=== PATIENT | female | born 1950 | race Caucasian/White ===

== ENCOUNTER → 2016-05-14 | Outpatient (CLI) | payer OTHER ==
[~2016-05-14] MED LIST: ALBU1AER9; ATOR-26 PO; CHOL1000 PO; CLOP1TAB5 PO; CYAN500T13 PO; DIPH-416 PO; DRON5CAP2 PO; MAGIC1 PO; ONDA4TAB46 PO; PRLSR20 PO; PYRI100T4 PO
--- NOTE | 2016-05-14 14:47 | DIAGNOSTIC IMAGING REPORT ---
CT OF THE CHEST WITH IV CONTRAST CLINICAL HISTORY: METASTATIC COLORECTAL CA COMPARISON STUDY: 02/20/2016 TECHNIQUE: Following the IV administration of 120 mL of Optiray-320, CT of the thorax was performed from the thoracic inlet to the lung bases. Images are reviewed in the axial, sagittal, and coronal planes. IV contrast was administered without complication. CT DOSE: 869.91 mGy.cm FINDINGS: Thyroid: Imaged portions of the thyroid gland are normal in appearance. Thoracic aorta: The thoracic aorta is normal in course and caliber, noting standard 3-vessel arch anatomy. No aneurysm or dissection is seen. Pulmonary vasculature: The pulmonary trunk is normal in caliber. There are no central filling defects identified to suggest pulmonary embolus. Note that this examination was not protocoled for the evaluation of pulmonary emboli. HEART: There are mild coronary artery calcifications Lungs and pleural spaces: There is no focal pulmonary consolidation. There is a stable 7 mm right lower lobe pulmonary nodule. There are a few additional punctate bony nodules which remain similar. There are no pleural effusions. There is a calcified right lower lobe granuloma. Mediastinum: There is no mediastinal lymphadenopathy. Yolie: Clear. Axilla: Clear. Upper abdomen: There is nodular infiltration of the left lateral peritoneal fat/omentum, suspicious for carcinomatosis. Subtle left lobe hepatic hypodensities remain similar. Skeletal structures: There are no lytic or blastic osseous lesions. IMPRESSION: 1. Progressive omental nodularity suspicious for progressive abdominal carcinomatosis 2. No evidence of pathologic intrathoracic adenopathy 3. Stable 7 mm right lower lobe pulmonary nodule Electronically signed by: Amador Deluna M.D. 05/14/2016 2:46 PM Dictated Date/Time: 05/14/2016 2:38 PM
--- NOTE | 2016-05-14 15:00 | DIAGNOSTIC IMAGING REPORT ---
CT SCAN OF THE ABDOMEN AND PELVIS WITH IV CONTRAST CLINICAL HISTORY: Metastatic colon cancer. COMPARISON STUDY: Abdominal CT dated 02/20/2016 and 02/06/2015. TECHNIQUE: Following the IV administration of 120 cc of Optiray 320, CT scan of the abdomen and pelvis is performed from the lung bases to the proximal femora. Images are reviewed in the axial, sagittal, and coronal planes. IV contrast was administered without complication. Automated dose control exposure was utilized. CT DOSE: 475.99 mGy.cm FINDINGS: Lung bases: The tip of a central venous infusion port terminates at the cavoatrial junction. The heart is normal in size and without pericardial effusion. Emphysema is observed. No airspace consolidation or pleural effusion is identified. A calcified granuloma is seen in the right lower lobe. A tiny hiatal hernia is noted. Liver: The contrast-enhanced liver is normal in size, contour, and attenuation. There is no intrahepatic biliary ductal dilatation. The hepatic veins and portal veins are patent. A serpiginous low density lesion in the left lobe of liver on image #64 is unchanged from previous. At least 2 additional subcentimeter low-density hepatic lesions are identified on images #80 and #89. These lesions have not significantly changed in appearance from 02/20/2016. Gallbladder: Surgically absent noting clips in the gallbladder fossa. Spleen: Normal in size and attenuation. Pancreas: Atrophic and grossly unremarkable. Adrenal glands: Unremarkable. Kidneys: The contrast enhanced kidneys demonstrate cortical atrophy and are without hydronephrosis. The kidneys enhance symmetrically. Abdominal vasculature: The abdominal aorta is normal in course and caliber noting moderate atherosclerotic calcification. Bowel: There are postoperative changes from distal colonic resection with left lower quadrant colostomy. There is a parastomal hernia containing nonobstructed loops of small bowel. A mucous fistula is suspected in the pelvic midline. A second parastomal hernia contains a nonobstructed loop of small bowel. No bowel obstruction is seen. The appendix is normal as visualized. Peritoneum: No intraperitoneal free air is seen. Trace free fluid is identified in the pelvis. There is increasing peritoneal thickening and nodularity identified in the left upper quadrant and in the right lower quadrant as compared to 02/20/2016. The appearance is consistent with progressive carcinomatosis. Lymphadenopathy: None. Pelvic viscera: The bladder is normal as visualized. The uterus is surgically absent. No adnexal lesion is seen. Skeletal structures: The skeletal structures are osteopenic. There is moderate lumbosacral spondylosis. No lytic or blastic lesions are seen. IMPRESSION: 1. Overall progression of peritoneal carcinomatosis as compared to 02/20/2016. A small volume of pelvic ascites is noted. 2. Presumed metastatic low-attenuation hepatic lesions have not significant changed in appearance from prior studies. 3. There are postoperative changes from distal colectomy with left lower quadrant colostomy and suspected mucous fistula in the ventral pelvis. No bowel obstruction is seen. 4. There are 2 parastomal hernias which contain nonobstructed loops of small bowel. 5. Additional changes as above. Electronically signed by: Ridge Mccarthy M.D. 05/14/2016 2:58 PM Dictated Date/Time: 05/14/2016 2:48 PM
== END | disposition home or self-care (01) ==
LOC: C.CTS 11:26
PROVIDERS: ATTEND Internal Medicine Hematology & Oncology
DX: C18.7 Malignant neoplasm of sigmoid colon (principal); Z93.3 Colostomy status; K76.9 Liver disease, unspecified; R91.1 Solitary pulmonary nodule

== ENCOUNTER → 2016-09-06 | Outpatient (CLI) | payer OTHER ==
[~2016-09-06] MED LIST changes: +OPTIRAY 320 IV PRN
--- NOTE | 2016-09-06 12:13 | DIAGNOSTIC IMAGING REPORT ---
CT OF THE CHEST WITH IV CONTRAST CLINICAL HISTORY: Metastatic colorectal carcinoma COMPARISON STUDY: The 2417 TECHNIQUE: Following the IV administration of 94 mL of Optiray-320, CT of the thorax was performed from the thoracic inlet to the lung bases. Images are reviewed in the axial, sagittal, and coronal planes. IV contrast was administered without complication. CT DOSE: 740.09 mGycm FINDINGS: Thyroid: Imaged portions of the thyroid gland are normal in appearance. Thoracic aorta: The thoracic aorta is normal in course and caliber, noting standard 3-vessel arch anatomy. No aneurysm or dissection is seen. Pulmonary vasculature: The pulmonary trunk is normal in caliber. There are no central filling defects identified to suggest pulmonary embolus. Note that this examination was not protocoled for the evaluation of pulmonary emboli. HEART: The heart is normal in size and configuration, without pericardial effusion. Lungs and pleural spaces: There are no pleural effusions. There is no focal pulmonary consolidation. There is a stable 7 mm mixed groundglass and solid right lower lobe pulmonary nodule.. There is a stable right lower lobe calcification. Mediastinum: There is no mediastinal lymphadenopathy. Yolie: Clear. Axilla: There is no evidence of pathologic axillary lymphadenopathy Upper abdomen: There is persistent omental nodularity. Skeletal structures: There are no lytic or blastic osseous lesions. IMPRESSION: 1. Persistent omental nodularity suspicious for carcinomatosis 2. Stable mixed solid and groundglass 7 mm right lower lobe pulmonary nodule 3. No evidence of intrathoracic pathologic adenopathy Electronically signed by: Amador Deluna M.D. 09/06/2016 12:12 PM Dictated Date/Time: 09/06/2016 12:06 PM
--- NOTE | 2016-09-06 12:30 | DIAGNOSTIC IMAGING REPORT ---
ABD/PELVIS IV AND ORAL CONT HISTORY:65 yearsFemaleCOLORECTAL CA this is a 3 month follow-up exam. Prior distal colectomy with left lower quadrant colostomy COMPARISON: CT abdomen and pelvis 05/14/2016, chest CT 09/06/2016. TECHNIQUE: Multiple axial CT images of the abdomen and pelvis were obtained following the intravenous administration of 94 mL Optiray 320. Oral contrast was also used. FINDINGS: The imaged lung bases are clear. There is no evidence of pneumoperitoneum. Inferior cardiac chambers are within normal limits. Multiple subcentimeter hepatic lesions are again seen, largest of which is within the lateral left hepatic lobe, 1.5 cm on image 9 of the axial series. Prior cholecystectomy. The spleen, adrenal glands appear normal. There is moderate to severe pancreatic atrophy. Kidneys and ureters are within normal limits. Urinary bladder is distended. Prior hysterectomy. There is mild atherosclerotic plaquing of the abdominal aorta and iliac vasculature. There is no bulky retroperitoneal adenopathy. Portal vein is patent. There is no bowel obstruction. Postsurgical changes are redemonstrated with distal colectomy and distal colostomy of the left lower quadrant. Parastomal hernias containing nonobstructed loop of small bowel are again seen. Extensive omental and peritoneal nodularity of the central and left upper abdomen is again seen without significant change from 05/14/2016. Trace abdominal and pelvic ascites has slightly progressed. No new adenopathy is identified. No suspicious sclerotic or lytic bony lesions are identified. There is advanced intervertebral disc space narrowing at L1-L2 with 4 mm retrolisthesis L1 on L2. IMPRESSION: 1. Stable exam with redemonstration of abdominal and pelvic omental/peritoneal carcinomatosis with small volume intra-abdominal and intrapelvic ascites. 2. No new adenopathy identified. 3. Persistent multiple subcentimeter low attenuating lesions throughout the hepatic parenchyma suspicious for metastasis. 4. Additional stable incidental findings as above include nonobstructing parastomal hernias. The above report was generated using voice recognition software. It may contain grammatical, syntax or spelling errors. Electronically signed by: Anurag Garber M.D. 09/06/2016 12:28 PM Dictated Date/Time: 09/06/2016 12:19 PM
== END | disposition home or self-care (01) ==
LOC: C.CTS 11:29
PROVIDERS: ATTEND Internal Medicine Hematology & Oncology
DX: C18.7 Malignant neoplasm of sigmoid colon (principal)

== ENCOUNTER → 2016-11-22 | Outpatient (CLI) | payer OTHER ==
--- NOTE | 2016-11-22 19:12 | DIAGNOSTIC IMAGING REPORT ---
CT OF THE CHEST WITH IV CONTRAST CLINICAL HISTORY: Colon cancer. COMPARISON STUDY: Chest CT September 06, 2016. TECHNIQUE: Following IV administration of 120 mL of Optiray-320, helical axial images of the chest were obtained. Sagittal and coronal reconstructions were viewed as well as maximal intensity projections on an independent 3-D workstation. A dose lowering technique was utilized adhering to the principles of ALARA. CT DOSE: 1087.48 mGycm FINDINGS: No enlarged axillary, mediastinal or hilar lymph nodes are present. The size of the heart is normal. There is no pericardial effusion. Central airways are patent. There is no consolidation to suggest pneumonia. An 8 mm right lower lobe nodule with tree-in-bud configuration shown on image 160 of 276 is unchanged from prior exams. A calcified granuloma within the right lower lobe is noted. Linear and ground glass opacities within the lungs favor atelectasis. There is no pneumothorax or pleural effusion. No suspicious osseous lesions are identified. The abdomen and pelvis will be reported separately. Omental nodularity consistent with carcinomatosis is again noted. This is better depicted on the abdominal CT. IMPRESSION: 1. No evidence of metastatic disease within the chest. 2. No change in the 8 mm right lower lobe nodule since CT of April 09, 2015. This remains indeterminate and can be followed on subsequent studies. 3. Findings consistent with peritoneal carcinomatosis which is better depicted on the abdominal CT. Electronically signed by: Raul Chin M.D. 11/22/2016 7:11 PM Dictated Date/Time: 11/22/2016 4:19 PM
--- NOTE | 2016-11-22 19:15 | DIAGNOSTIC IMAGING REPORT ---
ABD/PELVIS IV AND ORAL CONT HISTORY: 65 years-old Female COLON CA follow-up study in a patient with history of colon cancer. History of omental/peritoneal carcinomatosis. COMPARISON: CT abdomen and pelvis 09/06/2016, CT chest of same day TECHNIQUE: Multiple axial CT images of the abdomen and pelvis were obtained following the intravenous administration of 120 mL Optiray 320. Oral contrast also administered. A dose lowering technique was used consistent with the principals of ZAIDA. FINDINGS: There is a partially imaged 6 mm groundglass nodule right lower lobe seen on image 1 of series 6, better evaluated on CT chest of same day. Lung bases are otherwise clear. No pneumoperitoneum identified. Imaged inferior cardiac chambers are unremarkable. There is redemonstration of multiple subcentimeter low attenuating lesions throughout the liver, suspicious for metastasis. These are unchanged. Prior cholecystectomy. The spleen, pancreas and adrenal glands are unremarkable. 3 mm low attenuating lesion of the superior pole right kidney is too small to characterize however suggesting a cyst. Kidneys are otherwise unremarkable without renal calculi or hydronephrosis. Ureters and urinary bladder are unremarkable. Prior hysterectomy. There is moderate mixed plaquing of the abdominal aorta. No bulky retroperitoneal adenopathy identified. There is mild nonspecific wall thickening of the distal esophagus. Bowel containing parastomal hernias are noted. Postoperative changes are again seen compatible with distal colectomy and left lower quadrant colostomy. There is moderate wall thickening with mucosal hyperemia involving the cecum, ascending colon and hepatic flexure suspicious for colitis with air-fluid levels seen within this distribution. There are a few loops of mildly dilated small bowel within the lower pelvis measuring up to 3.0 cm with air-contrast levels. No significant proximal small bowel dilation identified however there is decreased progression of contrast into into distal minimally collapsed ileum. Diffuse peritoneal and omental nodularity is again seen throughout the abdomen and pelvis with slightly progressed disease, notably involving the bilateral paracolic gutters as seen on image 214 of series 6. Mild amount of dependent pelvic ascites redemonstrated. Soft tissues are unremarkable. No new suspicious lytic or blastic bony lesions. Multilevel degenerative changes of the spine are noted. IMPRESSION: 1. Redemonstration of abdominal and pelvic omental and peritoneal carcinomatosis with mildly progressive disease along the inferior aspect of the bilateral pericolic gutters as above. Small volume pelvic ascites is unchanged. 2. Multiple loops of small bowel within the lower mid abdomen and pelvis are mildly dilated with air contrast levels. There is diminished progression of contrast into distal mildly collapsed terminal ileum. These findings may reflect mild ileus or alternatively a low-grade small bowel obstruction. 3. Wall thickening and mucosal hyperemia involving the cecum, ascending colon and hepatic flexure are suspicious for colitis. 4. Unchanged subcentimeter low attenuating lesions throughout the liver are again suspicious for metastasis. 5. Unchanged appearance of parastomal nonobstructing hernias The above report was generated using voice recognition software. It may contain grammatical, syntax or spelling errors. Electronically signed by: Anurag Garber M.D. 11/22/2016 7:14 PM Dictated Date/Time: 11/22/2016 4:10 PM
== END | disposition home or self-care (01) ==
LOC: C.CTS 15:19
PROVIDERS: ATTEND Internal Medicine Hematology & Oncology
DX: C18.7 Malignant neoplasm of sigmoid colon (principal); R93.3 Abnormal findings on diagnostic imaging of other parts of digestive tract; K76.9 Liver disease, unspecified; K43.5 Parastomal hernia without obstruction or gangrene

== ENCOUNTER → 2017-02-16 | Outpatient (CLI) | payer OTHER ==
[~2017-02-16] MED LIST changes: +DRON5CAP15 PO; -DRON5CAP2 PO
--- NOTE | 2017-02-16 16:33 | DIAGNOSTIC IMAGING REPORT ---
CT SCAN OF THE CHEST, ABDOMEN, AND PELVIS WITH IV CONTRAST CLINICAL HISTORY: Colon cancer follow-up. COMPARISON STUDY: CT scan of the chest dated 11/22/2016 and 10/13/2014. Abdominal CT dated 11/22/2016 and 04/09/2015. TECHNIQUE: Following the IV administration of 93 of Optiray 320, CT scan of the chest, abdomen, and pelvis was performed from the thoracic inlet to the proximal femora. Images are reviewed in the axial, sagittal, and coronal planes. IV contrast was administered without complication. Automated dose control exposure was utilized. A dose lowering technique was utilized adhering to the principles of ALARA. CT DOSE: 653.70 mGy.cm FINDINGS: CHEST: Thyroid: Imaged portions of the thyroid gland are normal in size and attenuation. Thoracic aorta: The thoracic aorta is normal in caliber and demonstrates standard 3-vessel arch anatomy. No dissection is seen. A right internal jugular central venous infusion port is unchanged in position. Pulmonary vasculature: The pulmonary trunk is normal in caliber. There are no filling defects identified in the central pulmonary vessels to indicate pulmonary embolus. Note that this examination was not protocoled for evaluation of the pulmonary arteries. Heart: The heart is normal in size and configuration, and without pericardial effusion. There are coronary artery calcifications. Lungs and pleural spaces: There is mild emphysematous change. No airspace consolidation or pleural effusion is identified. Foci of scarring versus atelectasis are present in the right middle lobe. The trachea and central airways are clear. Calcified granuloma is seen in the right lower lobe. An 8 mm irregular density in the right lower lobe seen on image #169 has been present dating back to 2016 and is of indeterminant significance. No new or concerning pulmonary lesion is identified. Mediastinum: There is no mediastinal lymphadenopathy. Yolie: Clear. Axillae: There is no axillary lymphadenopathy. Bony thorax: The skeletal structures are osteopenic. Degenerative change and mild hyperkyphosis are noted in the thoracic spine. No lytic or blastic lesions are identified. ABDOMEN AND PELVIS: Liver: The contrast-enhanced liver is normal in in size and contour. Hepatic attenuation is mildly heterogeneous. There is minimal central intrahepatic or ductal dilatation. The hepatic veins and portal veins are patent. Low-attenuation hepatic lesions are overall similar in appearance to the 11/22/2016 examination. The majority of these lesions have been present dating back to 2015. A lesion in the inferior right lobe measuring 1.2 cm on image #139 is clearly new from 2016 and these lesions likely represent metastatic disease. A lesion in the left lobe on image #49 measures 1.8 cm. Additional subcentimeter lesions are seen on images #53 and #68. Gallbladder: Surgically absent noting clips in the gallbladder fossa. Spleen: Normal in size and attenuation. Pancreas: Atrophic and grossly unremarkable. Adrenal glands: Unremarkable. Kidneys: The contrast enhanced kidneys demonstrate cortical atrophy and are without hydronephrosis. The kidneys enhance symmetrically. Abdominal vasculature: The abdominal aorta is normal in course and caliber noting moderate atherosclerotic calcification. Bowel: There are postoperative changes from left-sided colon resection with left lower quadrant colostomy. No bowel obstruction is seen. A parastomal hernia containing nonobstructed loops of small bowel. There is also a fluid and small bowel containing hernia in the ventral pelvic midline. This also contains the sigmoid stump. The appendix is normal as visualized. Peritoneum: Findings of peritoneal carcinomatosis are not significant changed from 11/22/2016. Large omental lesions are seen in the left upper quadrant on image #110 and in the right ventral pelvis on image #211. There is a small volume of pelvic ascites. No intraperitoneal free air is seen. Lymphadenopathy: None. Pelvic viscera: The bladder is normal as visualized. The uterus is surgically absent. No adnexal lesion is seen. Skeletal structures: The skeletal structures are heterogeneously osteopenic. There is moderate lumbosacral spondylosis. No lytic or blastic lesions are seen. IMPRESSION: 1. There is no evidence of intrathoracic metastatic disease. 2. No airspace consolidation or pleural effusion is identified. 3. An 8 mm irregular density in the right lower lobe is unchanged dating back to 04/09/2015 and is of indeterminant significance. Continued attention at follow-up is recommended. 4. No new pulmonary lesion is identified. 5. Findings of peritoneal carcinomatosis have not significant changed from 11/22/2016. There is trace associated ascites. 6. Presumed hepatic metastatic lesions have not significantly changed from 11/22/2016. 7. There are postoperative changes from left-sided colon resection with left lower quadrant colostomy. No bowel obstruction is seen. 8. A parastomal hernia contains nonobstructed small bowel loops. 9. There is a fluid and a small bowel containing ventral hernia in the pelvis. This also contains the sigmoid stump. 10. Additional findings as above. Electronically signed by: Ridge Mccarthy M.D. 02/16/2017 4:31 PM Dictated Date/Time: 02/16/2017 4:14 PM
== END | disposition home or self-care (01) ==
LOC: C.CTS 15:12
PROVIDERS: ATTEND Internal Medicine Hematology & Oncology
DX: C18.7 Malignant neoplasm of sigmoid colon (principal); Z90.49 Acquired absence of other specified parts of digestive tract; K43.5 Parastomal hernia without obstruction or gangrene; K43.9 Ventral hernia without obstruction or gangrene

== ENCOUNTER → 2017-05-05 | Outpatient (CLI) | payer OTHER ==
--- NOTE | 2017-05-05 16:28 | DIAGNOSTIC IMAGING REPORT ---
CT SCAN OF THE CHEST, ABDOMEN, AND PELVIS WITH IV CONTRAST CLINICAL HISTORY: Colon cancer follow-up. COMPARISON STUDY: CT scan of the chest, abdomen, and pelvis dated 02/16/2017. Chest CT dated 04/09/2015.. TECHNIQUE: Following the IV administration of 93 of Optiray 320, CT scan of the chest, abdomen, and pelvis was performed from the thoracic inlet to the proximal femora. Images are reviewed in the axial, sagittal, and coronal planes. IV contrast was administered without complication. Automated dose control exposure was utilized. A dose lowering technique was utilized adhering to the principles of ALARA. CT DOSE: 1128.13 mGycm FINDINGS: CHEST: Thyroid: Imaged portions of the thyroid gland are normal in size and attenuation. Thoracic aorta: The thoracic aorta is normal in caliber and demonstrates standard 3-vessel arch anatomy. No dissection is seen. A right internal jugular central venous infusion port is unchanged in position. Pulmonary vasculature: The pulmonary trunk is normal in caliber. There are no filling defects identified in the central pulmonary vessels to indicate pulmonary embolus. Note that this examination was not protocoled for evaluation of the pulmonary arteries. Heart: The heart is normal in size and without pericardial effusion. There are coronary artery calcifications. Lungs and pleural spaces: There is mild emphysematous change. No airspace consolidation or pleural effusion is identified. Foci of scarring versus atelectasis are again seen in the right middle lobe. The trachea and central airways are clear. 3 calcified granuloma is seen in the right lower lobe. An 8 mm irregular density in the right lower lobe seen on image #145 has been present dating back to 2016 and is of indeterminant significance. A 2 mm right upper lobe nodule seen on image #15 is also unchanged. No new or concerning pulmonary lesion is identified. Mediastinum: There is no mediastinal lymphadenopathy. Yolie: Clear. Axillae: There is no axillary lymphadenopathy. Bony thorax: The skeletal structures are osteopenic. Degenerative change and mild hyperkyphosis are noted in the thoracic spine. No lytic or blastic lesions are identified. ABDOMEN AND PELVIS: Liver: The contrast-enhanced liver is normal in in size and contour. Hepatic attenuation is mildly heterogeneous. There is no intrahepatic biliary ductal dilatation. The hepatic veins and portal veins are patent. There is been progression of hepatic metastatic disease as compared to 02/16/2017. A lesion in the inferior right lobe measuring 2.6 cm is seen on image #133 (previously measured 1.2 cm). A lesion in the left lobe on image #55 measures 2.7 cm (previously measured 1.8 cm). Additional subcentimeter lesions are seen on images #58 and #66. No new hepatic lesion is clearly identified. Gallbladder: Surgically absent noting clips in the gallbladder fossa. Spleen: Normal in size and attenuation. Pancreas: Atrophic and grossly unremarkable. Adrenal glands: Unremarkable. Kidneys: The contrast enhanced kidneys demonstrate cortical atrophy and are without hydronephrosis. The kidneys enhance symmetrically. Abdominal vasculature: The abdominal aorta is normal in course and caliber noting moderate atherosclerotic calcification. Bowel: There are postoperative changes from left-sided colon resection with left lower quadrant colostomy. No bowel obstruction is seen. A parastomal hernia containing nonobstructed loops of small bowel. There is also a fluid and small bowel containing hernia in the ventral pelvic midline. This also contains the sigmoid stump. The appendix is normal as visualized. Peritoneum: Findings of peritoneal carcinomatosis have mildly progressed from 02/16/2017. Large omental lesions are seen in the left upper quadrant on image #115 and in the right ventral pelvis on image #212. These are increasingly confluent from previous. There is a small volume of abdominopelvic ascites, also modestly increased. No intraperitoneal free air is seen. Lymphadenopathy: None. Pelvic viscera: The bladder is normal as visualized. The uterus is surgically absent. No adnexal lesion is seen. Skeletal structures: The skeletal structures are heterogeneously osteopenic. There is moderate lumbosacral spondylosis. No lytic or blastic lesions are seen. IMPRESSION: 1. There is no evidence of intrathoracic metastatic disease. 2. There has been modest progression of peritoneal carcinomatosis and hepatic metastatic disease as compared to 02/16/2017. There is a small volume of abdominopelvic ascites which has also modestly increased. 3. An 8 mm irregular density in the right lower lobe is unchanged dating back to 04/09/2015 and is of indeterminant significance. Continued attention at follow-up is recommended. 4. No airspace consolidation or pleural effusion is identified. 5. There are postoperative changes from left-sided colon resection with left lower quadrant colostomy. No bowel obstruction is seen. 6. A parastomal hernia contains nonobstructed small bowel loops. 7. There is a fluid and a small bowel containing ventral hernia in the pelvis. This also contains the sigmoid stump. 8. Additional findings as above. Electronically signed by: Ridge Mccarthy M.D. 05/05/2017 4:26 PM Dictated Date/Time: 05/05/2017 4:11 PM
== END | disposition home or self-care (01) ==
LOC: C.CTS 13:47
PROVIDERS: ATTEND Internal Medicine Hematology & Oncology
DX: C18.7 Malignant neoplasm of sigmoid colon (principal)